=== PATIENT | female | born 1995 | race African-American/Black ===

== ENCOUNTER 2022-10-27 13:11 | Emergency (ER) | payer OTHER ==
[2022-10-27 13:15] VITALS: BP 109/65; PULSE 98; RESP 18; TEMP 99.6; BMI 26.6
[2022-10-27] MEDS ORDERED: SODIUM CHLORIDE 0.9% 500 ML INFUS.BAG IV ONE (13:43)
[2022-10-27 14:31] LABS: BASO % 0.3 % (0-2.0); EOS % 0.8 % (0-4.5); HEMATOCRIT 31.6 % (32.4-45.2); HEMOGLOBIN 10.6 GM/dL (10.7-15.3); LYMPH % 16.5 % (8-40); MCH 27.1 pg (25.7-33.7); MCHC 33.5 g/dl (32.0-36.0); MEAN CELL VOLUME 81.1 fl (80-96); MEAN PLT VOLUME 6.4 fl (7.5-11.1); MONO % 4.7 % (3.8-10.2); NEUT % 77.7 % (42.8-82.8); PLATELET COUNT 408 10^3/uL (134-434); WHITE BLOOD COUNT 8.6 K/mm3 (4.0-10.0)
[2022-10-27 14:45] LABS: POTASSIUM 4.5 mmol/L (3.5-5.1)
[2022-10-27 14:47] LABS: ALBUMIN 3.4 g/dl (3.4-5.0); CALCIUM 8.5 mg/dL (8.5-10.1)
[2022-10-27 14:48] LABS: BLOOD UREA NITROGEN 8.1 mg/dL (7-18)
[2022-10-27 14:50] LABS: CREATININE 0.7 mg/dL (0.55-1.3)
[2022-10-27 14:52] LABS: BILIRUBIN,TOTAL 0.2 mg/dL (0.2-1); TOT PROT 6.6 g/dl (6.4-8.2)
[2022-10-27 15:35] LABS: HCG,QUALITATIVE URINE Positive
[2022-10-27 15:37] LABS: EPI CELLS 9 /uL (0-25.1); HYALINE CASTS 0 /uL (0-3.1); PH,URINE 6.5 (5.0-8.0); URINE APPEARANCE CLEAR; URINE BACTERIA 24 /uL (0-1359); URINE BILIRUBIN NEGATIVE (NEGATIVE); URINE COLOR YELLOW; URINE GLUCOSE (UA) NEGATIVE (NEGATIVE); URINE KETONE NEGATIVE (NEGATIVE); URINE LEUK ESTERASE TRACE (NEGATIVE); URINE NITRITE NEGATIVE (NEGATIVE); URINE PROTEIN NEGATIVE (NEGATIVE); URINE RBC 2393 /uL (0-23.9); URINE UROBILINOGEN 0.2 mg/dL (0.2-1.0); URINE WBC 14 /uL (0-25.8)
== END 2022-10-27 19:06 | disposition home or self-care (01) ==
LOC: JER 13:11
DX: R55 Syncope and collapse (principal); R53.83 Other fatigue; R42 Dizziness and giddiness; N93.9 Abnormal uterine and vaginal bleeding, unspecified
CPT/HCPCS: 36415; 76830-TC; 80053; 81003; 84702; 84703; 85025; 87086; 93005; 93010; 99285-25